=== PATIENT | male | born 1995 ===

== ENCOUNTER 2020-06-06 23:18 | Emergency (ER) | payer SELFPAY ==
[~2020-06-06] VITALS: Ht 175.3 cm; Wt 68.8 kg
[2020-06-06 23:20] VITALS: BP 146/77
--- NOTE | 2020-06-06 23:20 | NUR ---
PATIENT IN TRIAGE WITH SOBER SECURITY ARCHITECT. PATIENT ABLE TO AMBULATE WITHOUT COMPLICATIONS/WITHOUT ASSISTANCE, ANSWER QUESTIONS APPROPRIATELY. NO NOTED ACUTE DISTRESS.
[2020-06-06] MEDS ORDERED: LIDOCAINE-MPF 1%, 5ML INFIL ONE (23:30)
[2020-06-06] MEDS ORDERED: DIPH,PERTUSS(ACELL),TET VAC/PF 0.5 ML IM-VACC ONE (23:30)
[2020-06-06] MEDS ORDERED: PLEASE ENTER ALLERGIES MC SCH (23:45)
--- NOTE | 2020-06-07 00:07 | NUR ---
TASK RN: PT COMING OUT OF ROOM, REFUSING TO STAY IN ROOM OR ON [facility] STATING "LOOK AT MY FACE, NO ONE IS HELPING ME AND YOU JUST THINK IM GOING TO SIT HERE" RN EXPLAINED WE ARE WAITING FOR TEST RESULTS AND A PROVIDER WILL BE IN [place]. PT NAD, BACK TO [facility] AT THIS TIME. LD BOBO AT FOR EVAL AND POC.
[2020-06-07] MEDS ORDERED: LIDOCAINE-MPF 1%, 5ML ONE (00:15)
--- NOTE | 2020-06-07 00:22 | NUR ---
PT IN BED CALM AND COOPERATIVE AT THIS TIME. HAS LAC TO LOWER CHIN PORTION APPROXIMATELY 3CM. ANOTHER THAT IS 2 CM. BEING FLUSHED WITH NS. PT TOLERATING WELL.
[2020-06-07] MEDS ORDERED: NEOSPORIN OINT. PKT 1 PACKET ONE (00:58)
--- NOTE | 2020-06-07 01:34 | NUR ---
LACERATION CLOSED BY PA, AFTER USING LOCAL ANESTHETIC. EDGES APPROXIMATED. AFTER WOUND CLOSED AND DRESSED, D/C PAPERS WERE BEING PREPARED. ON RETURN TO ROOM, PT IS GONE AND WAS SEEN LEAVING OUT THE AMBULANCE ENTRANCE AND ELOPED AGAINST ADVICE.
== END 2020-06-07 01:36 | disposition left against medical advice (07) ==
LOC: ED 06-07 00:04
DX: S01.511A Laceration without foreign body of lip, initial encounter (principal); S01.81XA Laceration without foreign body of other part of head, initial encounter; S09.90XA Unspecified injury of head, initial encounter; F17.210 Nicotine dependence, cigarettes, uncomplicated; Y04.0XXA Assault by unarmed brawl or fight, initial encounter; Y93.89 Activity, other specified; Y92.89 Other specified places as the place of occurrence of the external cause; Y99.8 Other external cause status
CPT/HCPCS: 12051; 70450; 99284; 99406